=== PATIENT | male | born 1970 | race Caucasian/White ===

== ENCOUNTER 2021-05-28 01:48 | Emergency (ER) | payer MEDICARE, OTHER ==
[2021-05-28 02:44] LABS: BASOPHIL 0.5 % (0-2); EOSINOPHIL 1.2 & (0-5); HCT 25.5 % (42.0-52.0); HGB 8.5 g/dl (13.2-18.0); LYMPHOCYTE 26.4 % (15-48); MCH 37.9 pg (25.0-31.0); MCHC 33.3 g/dL (32.0-36.0); MCV 113.8 fL (78.0-100.0); MONOCYTE 7.1 % (0-12); NEUTROPHIL 64.3 % (41-80); PLT 209 K/uL (150-400); RBC 2.24 M/uL (4.70-6.00); RDW 13.8 % (11.5-14.0); WBC 5.65 K/uL (4.0-10.5)
[2021-05-28 02:52] LABS: BILIRUBIN 1+ mg/dL (NEGATIVE); BLOOD NEGATIVE Ery/uL (NEGATIVE); CLARITY CLEAR (CLEAR); COLOR YELLOW (YELLOW); GLUCOSE (U) NORMAL (NORMAL); LEUKOCYTES NEGATIVE Leu/uL (NEGATIVE); NITRITE NEGATIVE (NEGATIVE); PROTEIN NEGATIVE (NEGATIVE); SPECIFIC GRAVITY 1.025 (1.001-1.030)
[2021-05-28 02:53] LABS: AMPHETAMINES NEGATIVE (NEGATIVE); BARBITURATES NEGATIVE (NEGATIVE); ECSTASY (MDMA) NEGATIVE (NEGATIVE); MARIJUANA (THC) NEGATIVE (NEGATIVE); METHADONE NEGATIVE (NEGATIVE); OPIATES NEGATIVE (NEGATIVE); OXYCODONE NEGATIVE (NEGATIVE)
[2021-05-28 02:55] LABS: INR 1.07 (0.9-1.2); PROTHROMBIN TIME 13.3 SECONDS (11.8-13.4); PTT 27.2 SECONDS (24.4-34.7)
[2021-05-28 03:15] LABS: ALBUMIN 3.5 g/dL (3.4-5.0); BILIRUBIN - TOTAL 2.1 mg/dL (0.2-1.0); BUN/CREAT RATIO (CALC) 14.3 RATIO; CREATININE 0.63 mg/dL (0.67-1.17); GLOBULIN (CALCULATION) 2.8 g/dL; POTASSIUM 3.6 mmol/L (3.5-5.1); TOTAL PROTEIN 6.3 g/dL (6.4-8.2)
[2021-05-28 03:47] LABS: RETICULOCYTE COUNT 4.9 % (1.0-2.0)
[2021-05-28 04:20] LABS: FOLIC ACID (SERUM) 18.8 ng/mL (8.6-58.9)
[2021-05-28] MEDS ORDERED: SENNA-S 8.6-501 EACH PO (04:51)
== END 2021-05-28 05:00 | disposition home or self-care (01) ==
LOC: FER 01:48
PROVIDERS: Internal Medicine
DX: G20 Parkinson's disease (principal); G40.909 Epilepsy, unspecified, not intractable, without status epilepticus; D53.9 Nutritional anemia, unspecified; E80.7 Disorder of bilirubin metabolism, unspecified
CPT/HCPCS: 36415; 71250; 80053; 80305; 81003; 82607; 82746; 83605; 84443; 84484; 85025; 85610; 85730; 93005; 96372; J1953; J3420